=== PATIENT | male | born 1965 | race Caucasian/White ===

== ENCOUNTER 2018-01-22 19:30 | Emergency (ER) | payer MEDICAID, OTHER ==
[2018-01-22 21:26] LABS: Glucose,Whole Blood 109 mg/dL (75-99)
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
--- NOTE | 2018-01-22 21:52 | XR ---
EXAMINATION TYPE: XR lumbar spine 2 or 3V DATE OF EXAM: 01/22/2018 COMPARISON: 01/25/2013 HISTORY: Pain TECHNIQUE: 3 views FINDINGS: Vertebra have fairly normal alignment. There is mild spurring of the endplates. Posterior e lements are intact. Sacroiliac joints appear intact. There is tilting of the pelvis. IMPRESSION: Pelvic tilt. Mild spondylotic changes. No fracture. No change compared to old exam.
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
[2018-01-22 22:41] VITALS: BP 142/72; PULSE 80; RESP 16; TEMP 97.8
== END 2018-01-22 22:30 | disposition home or self-care (01) ==
LOC: EC 19:30
DX: S16.1XXA Strain of muscle, fascia and tendon at neck level, initial encounter (principal); E11.9 Type 2 diabetes mellitus without complications; E78.5 Hyperlipidemia, unspecified; Z87.891 Personal history of nicotine dependence; Z79.84 Long term (current) use of oral hypoglycemic drugs; Z79.899 Other long term (current) drug therapy; Z88.0 Allergy status to penicillin; V43.52XA Car driver injured in collision with other type car in traffic accident, initial encounter; Y92.410 Unspecified street and highway as the place of occurrence of the external cause
CPT/HCPCS: 36415; 72100; 72125; 99284

== ENCOUNTER 2019-10-30 18:51 | Emergency (ER) | payer MEDICAID, OTHER ==
[2019-10-30 19:54] VITALS: BP 128/68; PULSE 72; RESP 16; TEMP 98.1
[2019-10-30] MEDS ORDERED: DIPH,PERTUS(ACELL)TETVAC-LF 0.5 ML VIAL IM ONE (20:28)
[2019-10-30] MEDS ORDERED: LIDOCAINE 1% INJ 10MG/ML (20 ML MDV) SQ STA (20:31)
--- NOTE | 2019-10-30 22:01 | ED ---
General Adult HPI - General Chief complaint: Wound/Laceration Stated complaint: Hand lac Time Seen by Provider: 10/30/19 20:00 Source: patient, RN notes reviewed, old records reviewed Mode of arrival: ambulatory Limitations: no limitations - History of Present Illness Initial comments: 54-year-old male patient presents to ED with chief complaint laceration to the palmar aspect of right hand. Patient reports that he was installing a new stove when he scraped his hand against a piece of metal. Patient does have a 5 cm laceration on the palmar aspect of the first carpal region. Does not know date of last tetanus. This happened earlier today. Denies any other complaints. Systemic: Pt denies fatigue, fever/chills, rash. Pt denies weakness, night s weats, weight loss. Neuro: Pt denies headache, visual disturbances, syncope or pre-syncope. HEENT: Pt denies ocular discharge or irritation, otalgia, rhinorrhea, pharyngitis or notable lymphadenopathy. Cardiopulmonary: Pt denies chest pain, SOB, heart palpitations, dyspnea on exertion. Abdominal/GI: Pt denies abdominal pain, n/v/d. : Pt denies dysuria, burning w/ urination, frequency/urgency. Denies new onset urinary or bowel incontinence. MSK: Pt denies myalgia, loss of strength or function in extremities. Neuro: Pt denies new onset weakness, paresthesias. - Related Data Home Medications Medication Instructions Recorded Confirmed Cyclobenzaprine HCl 10 mg PO TID PRN 06/10/14 07/15/15 Fenofibric Acid (Choline) 135 mg PO HS 06/10/14 07/15/15 [Trilipix] HYDROcodone/IBUPROFEN [Vicoprofen 1 each PO BID PRN 06/10/14 07/15/15 7.5-200 mg Tablet] Ibuprofen [Motrin] 800 mg PO Q8HR PRN 06/10/14 07/15/15 metFORMIN HCL [Glucophage] 500 mg PO DAILY 06/10/14 07/15/15 Previous Rx's Medication Instructions Recorded Meclizine [Antivert] 25 mg PO TID #20 tab 06/10/14 Ibuprofen [Motrin] 600 mg PO Q6HR PRN #20 tab 07/15/15 Allergies Allergy/AdvReac Type Severity Reaction Status Date / Time Penicillins Allergy Rash/Hives Verified 10/30/19 19:54 Review of Systems ROS Statement: Those systems with pertinent positive or pertinent negative responses have been documented in the HPI. ROS Other: All systems not noted in ROS Statement are negative. Past Medical History Past Medical History: Diabetes Mellitus, Hyperlipidemia Additional Past Medical History / Comment(s): pancreatitis, back pain History of Any Multi-Drug Resistant Organisms: None Reported Past Surgical History: No Surgical Hx Reported Past Psychological History: No Psychological Hx Reported Smoking Status: Former smoker Past Alcohol Use History: None Reported Past Drug Use History: None Reported General Exam - General Exam Comments Initial Comments: Constitutional: NAD, AOX3, Pt has pleasant affect. HEENT: NC/AT, trachea midline, neck supple, nExternal ears appear normal, without discharge. Mucous membranes moist. Eyes PERRLA, EOM intact. There is no scleral icterus. No pallor noted. Cardiopulmonary: RRR, no murmurs, rubs or gallops, no JVD noted. Lungs CTAB in anterior and posterior hickey. No peripheral edema. Abdominal exam: Abdomen soft and non-distended. Abdomen non-tender to palpation in all 4 quadrants. Bowel sounds active in LLQ. No hepatosplenomegaly. No ecchymosis Neuro: CN II-XII grossly intact. No nuchal rigidity. No raccon eyes, no beverly sign, no hemotympanum. MSK: 5 cm laceration along the first carpal region palmar aspect. Vigorously irrigated, approximated with 7 simple interrupted sutures. Full active range of motion of all digits of hand, sensation intact, before and after suture placement. No posterior calf tenderness bilaterally, homans sign negative bilaterally. Posterior tibialis and radial pulse +2 bilaterally. Sensation intact in upper and lower extremities. Full active ROM in upper and lower extremities, 5/5 stregnth. Limitations: no limitations Course Vital Signs 10/30/19 19:50 Temperature 98.1 F Pulse Rate 72 Respiratory 16 Rate Blood Pressure 128/68 O2 Sat by Pulse 97 Oximetry Procedures - Laceration Laceration #1 Consent Obtained: verbal consent Indication: laceration Site: hand Size (cm): 5 Description: linear Depth: simple, single layer Anesthetic Used: lidocaine 1% Anesthesia Technique: local infiltration Amount (mls): 4 Pre-repair: wound explored, irrigated extensively, deep structures intact Type of Sutures: nylon Size of Sutures: 5-0 Number of Sutures: 7 Technique: simple, interrupted Patient Tolerated Procedure: well, no complications Medical Decision Making - Medical Decision Making 54-year-old male patient visiting chief complaint laceration. Patient felt signs are stable, afebrile. Physical exam did display 5 cm laceration was repaired with 7 sutures. Tetanus was updated. Patient was discharged with primary care follow-up and return precautions. Case discussed with Dr. Ely. Disposition Clinical Impression: Laceration Disposition: HOME SELF-CARE Condition: Stable Instructions (If sedation given, give patient instructions): Laceration (ED) Additional Instructions: Please return for suture removal: Hand: 7-10 days Please monitor for signs and symptoms of infection including: redness, warmth, drainage, discharge. Please return to ED if these signs or symptoms occur, new signs or symptoms develop or if condition worsens in anyway. Follow up with primary care provider tomorrow. Is patient prescribed a controlled substance at d/c from ED?: No Referrals: Ricci Link DO [Primary Care Provider] - 1-2 days
== END 2019-10-30 22:13 | disposition home or self-care (01) ==
LOC: EC 18:51
DX: S61.411A Laceration without foreign body of right hand, initial encounter (principal); Z23 Encounter for immunization; Z87.891 Personal history of nicotine dependence; Z88.0 Allergy status to penicillin; E11.9 Type 2 diabetes mellitus without complications; E78.5 Hyperlipidemia, unspecified; Z79.84 Long term (current) use of oral hypoglycemic drugs; Z79.899 Other long term (current) drug therapy; W26.8XXA Contact with other sharp object(s), not elsewhere classified, initial encounter; Y93.89 Activity, other specified; Y92.009 Unspecified place in unspecified non-institutional (private) residence as the place of occurrence of the external cause
CPT/HCPCS: 90715; 90471; 99283; 12002; J2001

== ENCOUNTER → 2022-04-01 | Outpatient (CLI) | payer OTHER ==
--- NOTE | 2022-04-01 17:41 | XR ---
EXAMINATION: XR chest 2V DATE AND TIME: 04/01/2022 4:47 PM CLINICAL INDICATION: Z87.891, Z00.00; 56 M with intermittent shortness of breath and chest pain for 2 weeks TECHNIQUE: Departmental protocol COMPARISON: 08/18/2015 FINDINGS: The lungs are clear. The pleural spaces are negative. The cardiac silhouette is not enlarged. The remainder of the mediastinal silhouette is unremarkable. The skeletal structures and soft tissues are negative for acute findings. IMPRESSION: NO ACUTE PROCESS.
== END | disposition home or self-care (01) ==
LOC: RADXRMAIN 16:37
PROVIDERS: ATTEND Family Medicine
DX: Z00.00 Encounter for general adult medical examination without abnormal findings (principal); Z87.891 Personal history of nicotine dependence
CPT/HCPCS: 71046

== ENCOUNTER 2023-06-28 09:10 | Day surgery (SDC) | payer OTHER ==
[2023-06-27 09:21] VITALS: BMI 31.6
[~2023-06-28 09:10] MED LIST: LACTATED RINGERS 1,000 ML IV SCH; LIDOCAINE 1% (10MG/ML) FOR IV START INTRADERMA PRN; ONDANSETRON 4 MG/2 ML VIAL IVP PRN
[2023-06-28 10:46] LABS: Glucose,Whole Blood 132 mg/dL (70-110)
[2023-06-28 10:48] VITALS: TEMP 97.1
[2023-06-28] MEDS ORDERED: PROPOFOL 10 MG/ML 20 ML VIAL IV ONE (11:35)
[2023-06-28] MEDS ORDERED: LIDOCAINE 1% INJ 10MG/ML (20 ML MDV) ONE (11:35)
--- NOTE | 2023-06-28 11:48 | P.PCN ---
Date of Procedure: 06/28/23 Procedure(s) Performed: BRIEF HISTORY: Patient is a 57-year-old pleasant male scheduled for an elective colonoscopy as a part of screening for colon cancer. PROCEDURE PERFORMED: Colonoscopy with biopsy. PREOPERATIVE DIAGNOSIS: Screening for colon cancer. IV sedation per Anesthesia. PROCEDURE: After informed consent was obtained, the patient, was brought into the endoscopy unit. IV sedation was administered by Anesthesia under continuous monitoring. Digital rectal examination was normal. Initially the Olympus CF-160 flexible video colonoscope was then inserted in the rectum, gradually advanced into the cecum without any difficulty. Careful examination was performed as the scope was gradually being withdrawn. Ileocecal valve and the appendiceal orifice were visualized and appeared normal. Prep was excellent. Mucosa of the cecum, ascending colon, transverse colon, descending colon, sigmoid colon, and rectum appeared normal. There is a 3 millimeter polyp noted in the proximal rectum that was removed by cold biopsy. Retroflexion was performed in the rectum and no lesions were seen. The patient tolerated the procedure well. IMPRESSION: 3 mm proximal rectal polyp status post cold biopsy Rest of the colon appeared normal RECOMMENDATIONS: Findings of this examination were discussed with the patient as well as his family. Advised to follow with the biopsy results and have a repeat colonoscopy in 10 years.
[2023-06-28 12:31] VITALS: BP 131/83; PULSE 57; RESP 20
== END 2023-06-28 12:40 | disposition home or self-care (01) ==
LOC: ORWHC2ENDO 09:10
PROVIDERS: ATTEND Internal Medicine Gastroenterology
DX: Z12.11 Encounter for screening for malignant neoplasm of colon (principal); K62.1 Rectal polyp; E78.5 Hyperlipidemia, unspecified; Z87.891 Personal history of nicotine dependence; E11.9 Type 2 diabetes mellitus without complications; K85.90 Acute pancreatitis without necrosis or infection, unspecified; Z79.4 Long term (current) use of insulin; Z79.899 Other long term (current) drug therapy
CPT/HCPCS: 88305; 45380; J2001; J2704